=== PATIENT | female | born 2000 | race American Indian/Alaskan Native ===

== ENCOUNTER 2022-01-08 05:00 | Emergency (ER) | payer SELFPAY ==
[2022-01-08] MEDS ORDERED: fentaNYL 100 MCG/2 ML INJ IV ONE (05:22)
[2022-01-08] MEDS ORDERED: ONDANSETRON 4 MG/2 ML INJ IV ONE (05:22)
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
[2022-01-08 05:49] LABS: Basophils # (Auto) 0.1 K/mm3 (0.0-0.1); Basophils % (Auto) 1.6 % (0.0-1.8); Eosinophils % (Auto) 0.1 % (0.0-4.3); Hematocrit 40.4 % (30.3-42.9); Hemoglobin 13.3 gm/dl (10.1-14.3); Lymphocytes # (Auto) 1.4 K/mm3 (1.2-5.4); Lymphocytes % (Auto) 30.5 % (13.4-35.0); Mean Corpuscular HGB Conc 33 % (30-34); Mean Corpuscular Volume 88 fl (79-97); Monocytes # (Auto) 0.4 K/mm3 (0.0-0.8); Monocytes % (Auto) 8.6 % (0.0-7.3)
[2022-01-08 05:52] LABS: Platelet Count 80 K/mm3 (140-440)
[2022-01-08 06:18] LABS: Alanine Aminotransferase 71 units/L (7-56); Albumin 4.4 g/dL (3.9-5); Blood Urea Nitrogen 11 mg/dL (7-17); Calcium 9.4 mg/dL (8.4-10.2); Creatine Kinase MB 108.3 ng/mL (0.0-4.0); Hemolysis Index 17
[2022-01-08 06:20] LABS: BUN/Creatinine Ratio 18
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
[2022-01-08 06:49] LABS: HDL Cholesterol 27 mg/dL (40-59); LDL Cholesterol,Direct 82 mg/dL (50-130)
[2022-01-08] MEDS ORDERED: MORPHINE 4 MG/1 ML INJ IV ONE (06:50)
[2022-01-08] MEDS ORDERED: SODIUM CHLORIDE 0.9% 1000 ML 1,000 ML IV ONE (06:50)
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
[2022-01-08 08:43] VITALS: BP 103/68
--- NOTE | 2022-01-09 10:01 | Electrocardiograph Report ---
[facility] Test Date: 2022-01-08 Test Time: 06:27:22 Pat Name: VANITA GRANT Department: Room: Gender: F Student Support Counselor: RICHARD : [id number] Requested By: PHYLLIS LOGAN Order Number: [id number] Reading MD: Jair Torres Measurements Intervals [place] Rate: 78 P: 57 NH: 130 QRS: 70 QRSD: 77 T: 33 QT: 365 QTc: 416 Interpretive Statements Sinus rhythm No previous ECG available for comparison Electronically Signed On 01-09-2022 10:00:25 EDT by Jair Torres
== END 2022-01-08 09:36 | disposition short-term general hospital (02) ==
LOC: ED 05:00
DX: R74.8 Abnormal levels of other serum enzymes (principal); D69.6 Thrombocytopenia, unspecified; M62.82 Rhabdomyolysis; R74.01 Elevation of levels of liver transaminase levels; V89.2XXA Person injured in unspecified motor-vehicle accident, traffic, initial encounter; Y93.89 Activity, other specified; Y92.89 Other specified places as the place of occurrence of the external cause; Y99.8 Other external cause status
CPT/HCPCS: 36415; 71045; 80053; 80061; 82550; 82553; 84484; 84703; 85025; 93005; 96361; 96374; 96375; 99285; J2270; J2405; J3010; J7030